=== PATIENT | female | born 1980 | race Caucasian/White ===

== ENCOUNTER 2017-02-28 17:40 | Emergency (ER) | payer OTHER ==
[~2017-02-28] VITALS: Ht 167.6 cm; Wt 71.5 kg
[~2017-02-28 17:40] MED LIST: BUPR300T49 PO; CELE200C PO; HYDR12.58 PO; IBUP-1223 PO; LEVO25TA2 PO; LINA290C PO; SPIR100T2 PO; THYR90TA PO; [UNRECOGNIZED DRUG - CODE] SC; birth control PO
[2017-02-28] MEDS ORDERED: HYDROmorphone 1 MG/ML, 1ML ONE (18:56)
[2017-02-28] MEDS ORDERED: HYDROmorphone 1 MG/ML, 1ML IM PRN (19:00)
[2017-02-28] MEDS ORDERED: PROMETHAZINE 25 MG/ML, 1ML IM STA (19:00)
[2017-02-28] MEDS ORDERED: PROMETHAZINE 25 MG/ML, 1ML ONE (19:01)
[2017-02-28 19:41] VITALS: BP 116/81
== END 2017-02-28 19:43 | disposition home or self-care (01) ==
LOC: ED 19:36
DX: Z76.0 Encounter for issue of repeat prescription (principal); J34.89 Other specified disorders of nose and nasal sinuses
CPT/HCPCS: 96372; 99284; J1170; J2550

== ENCOUNTER 2017-06-05 16:46 | Emergency (ER) | payer OTHER ==
[~2017-06-05] VITALS: Ht 165.1 cm; Wt 70.4 kg
[2017-06-05 17:31] LABS: BASOPHILS # (AUTO) 0.04 x10^3/uL (0-0.1); BASOPHILS % (AUTO) 1 % (0-1); EOSINOPHILS # (AUTO) 0.03 x10^3/uL (0-0.4); EOSINOPHILS % (AUTO) 0 % (1-7); LYMPHOCYTES # (AUTO) 2.68 x10^3/uL (1-3.4); LYMPHOCYTES % (AUTO) 36 % (22-44); MD NO; MEAN CORPUSCULAR HGB CONC 33.5 g/dL (32.4-35.8); MEAN CORPUSCULAR VOLUME 98.6 fL (80-100); MEAN PLATELET VOLUME 7.6 fL (7.4-10.4); MONOCYTES # (AUTO) 0.57 x10^3/uL (0.2-0.8); MONOCYTES % (AUTO) 8 % (2-9); NEUTROPHILS % (AUTO) 56 % (42-75); PLATELET COUNT 493 x10^3/uL (130-400); RED BLOOD COUNT 4.57 x10^6/uL (3.82-5.3)
[2017-06-05 17:39] LABS: ALANINE AMINOTRANSFERASE 40 U/L (12-78); ALBUMIN 4.2 g/dL (3.4-5.0); ANION GAP 9 mmol/L (5-15); CALCIUM 8.1 mg/dL (8.5-10.1); CHLORIDE 103 mmol/L (98-107); CREATININE 0.73 mg/dL (0.55-1.02)
[2017-06-05 17:41] LABS: ALKALINE PHOSPHATASE 89 U/L (45-117); BILIRUBIN,TOTAL 0.6 mg/dL (0.2-1.0); TOTAL PROTEIN 7.6 g/dL (6.4-8.2)
[2017-06-05] MEDS ORDERED: MAALOX/HYOSCYAMINE/LIDOCAINE 45 ML BTL PO ONE (19:00)
[2017-06-05] MEDS ORDERED: SODIUM CHLORIDE FLUSH 10ML SYR IVF ONE (19:00)
[2017-06-05] MEDS ORDERED: FAMOTIDINE 20 MG/2 ML IVP ONE (19:00)
[2017-06-05] MEDS ORDERED: SODIUM CHLORIDE 0.9% 1,000ML IVBOLUS ONE (19:00)
[2017-06-05] MEDS ORDERED: ONDANSETRON 2MG/ML, 2ML IVPush ONE ×2 (19:00→21:00)
[2017-06-05] MEDS ORDERED: MAALOX/HYOSCYAMINE/LIDOCAINE 45 ML BTL ONE (19:05)
[2017-06-05] MEDS ORDERED: ONDANSETRON 2MG/ML, 2ML ONE ×2 (19:05→21:17)
[2017-06-05] MEDS ORDERED: FAMOTIDINE 20 MG/2 ML ONE (19:05)
[2017-06-05] MEDS ORDERED: EMPA10TA PO (19:16)
[2017-06-05] MEDS ORDERED: POTA25TA4 PO (19:16)
[2017-06-05] MEDS ORDERED: LISD50CA3 PO (19:16)
[2017-06-05] MEDS ORDERED: OMNIPAQUE 350 MG/ML, 100ML BOTTLE ONE (19:38)
[2017-06-05] MEDS ORDERED: MORPHINE SULFATE 4 MG/ML, 1ML IVPush PRN (21:00)
[2017-06-05] MEDS ORDERED: MORPHINE SULFATE 4 MG/ML, 1ML ONE (21:17)
[2017-06-05 21:42] VITALS: BP 107/67
== END 2017-06-05 21:46 | disposition home or self-care (01) ==
LOC: ED 21:12
DX: N83.292 Other ovarian cyst, left side (principal); R19.7 Diarrhea, unspecified; C73 Malignant neoplasm of thyroid gland; E11.9 Type 2 diabetes mellitus without complications; G43.909 Migraine, unspecified, not intractable, without status migrainosus
CPT/HCPCS: 36415; 74022; 74177; 80053; 83690; 84703; 85025; 93005; 96361; 96374; 96375; 96376; 99285; J2405; J7030; Q9967; S0028

== ENCOUNTER 2017-11-29 10:45 | Day surgery (SDC) | payer OTHER ==
[~2017-11-29] VITALS: Ht 165.1 cm; Wt 68.0 kg
[~2017-11-29 10:45] MED LIST changes: +EMPA10TA PO; +LISD50CA3 PO; +POTA25TA4 PO; -SPIR100T2 PO; +SPIR100T4 PO
[2017-11-29 11:10] VITALS: BP 121/85
[2017-11-29] MEDS ORDERED: LACTATED RINGERS 1,000 ML IV SCH (11:13)
[2017-11-29] MEDS ORDERED: PLEASE ENTER HEIGHT AND WEIGHT MC SCH (11:30)
[2017-11-29] MEDS ORDERED: BUPIVACAINE/PF-EPI 0.25% 1:200K ONE (11:38)
[2017-11-29] MEDS ORDERED: SILVER NITRATE STICK TP ONE (11:39)
[2017-11-29] MEDS ORDERED: THROMBIN 5,000 UNIT VIAL TP ONE (11:39)
[2017-11-29] MEDS ORDERED: SUMATRIPTAN (11:56)
[2017-11-29] MEDS ORDERED: ALPR-475 PO (11:56)
[2017-11-29] MEDS ORDERED: OMEP40CA6 PO (11:56)
[2017-11-29] MEDS ORDERED: OXYC-306 PO (11:56)
[2017-11-29] MEDS ORDERED: BUPR300T49 PO (11:56)
[2017-11-29] MEDS ORDERED: JUNEL FE (11:56)
[2017-11-29] MEDS ORDERED: SCOPOLAMINE PATCH, 1.5MG PATCH.TD72 TD ONE (12:30)
[2017-11-29] MEDS ORDERED: FENTANYL PF 100 MCG/2ML ONE (12:30)
[2017-11-29] MEDS ORDERED: ACETAMINOPHEN 500 MG TABLET PO ONE (12:30)
[2017-11-29] MEDS ORDERED: OxyconTIN ER 10 MG TAB.ER PO ONE (12:30)
[2017-11-29] MEDS ORDERED: MIDAZOLAM 1 MG/ML, 2ML ONE (12:30)
[2017-11-29] MEDS ORDERED: GABAPENTIN 300 MG CAPSULE PO ONE (12:30)
[2017-11-29] MEDS ORDERED: DEXAMETHASONE 4 MG/ML, 1ML ONE (12:41)
[2017-11-29] MEDS ORDERED: SUCCINYLCHOLINE 20 MG/ML, 10ML ONE (12:41)
[2017-11-29] MEDS ORDERED: ROCURONIUM 10 MG/ML,10ML ONE (12:41)
[2017-11-29] MEDS ORDERED: ONDANSETRON 2MG/ML, 2ML ONE (12:41)
[2017-11-29] MEDS ORDERED: KETOROLAC 30 MG/1 ML ONE (12:41)
[2017-11-29] MEDS ORDERED: CEFAZOLIN 1,000 MG ONE (12:41)
[2017-11-29] MEDS ORDERED: PROPOFOL 10 MG/ML, 20ML ONE (12:41)
[2017-11-29] MEDS ORDERED: BUPIVACAINE/PF-EPI 0.25% 1:200K INFIL ONE (13:17)
[2017-11-29] MEDS: HYDROmorphone 1 MG/ML, 1ML IV PRN ×3 (13:39→14:06)
[2017-11-29] MEDS ORDERED: MEPERIDINE/PF 50 MG/ML ONE (13:41)
[2017-11-29] MEDS: MEPERIDINE/PF 25MG/0.5ML IVPush PRN ×2 (13:45→13:55)
[2017-11-29] MEDS ORDERED: OXYcodone 5 MG/5 ML ORAL.SOL UDC ONE (13:59)
[2017-11-29] MEDS ORDERED: ACETAMINOPHEN 650 MG/20.3 ML UDC ONE (13:59)
[2017-11-29] MEDS ORDERED: HYDROmorphone 2 MG/ML, 1ML ONE (13:59)
[2017-11-29] MEDS ORDERED: OXYcodone 5 MG/5 ML ORAL.SOL UDC PO PRN (14:00)
[2017-11-29] MEDS ORDERED: PROMETHAZINE 25 MG/ML, 1ML IV PRN (14:00)
[2017-11-29] MEDS ORDERED: MIDAZOLAM 1 MG/ML, 2ML IV PRN (14:00)
[2017-11-29] MEDS ORDERED: ONDANSETRON ODT 8 MG PO PRN (14:00)
[2017-11-29] MEDS ORDERED: FENTANYL PF 100 MCG/2ML IV PRN (14:00)
[2017-11-29] MEDS ORDERED: ALUMINUM/MAG/SIMETHICONE 30 ML UDC PO ONE (14:30)
[2017-11-29] MEDS ORDERED: morphine SULFATE 10 MG/ML, 1ML IVPush PRN (16:30)
== END 2017-11-29 18:25 | disposition home or self-care (01) ==
LOC: OUT 10:45
PROVIDERS: ATTEND Obstetrics & Gynecology
DX: N93.8 Other specified abnormal uterine and vaginal bleeding (principal); E78.00 Pure hypercholesterolemia, unspecified; K22.70 Barrett's esophagus without dysplasia; E03.9 Hypothyroidism, unspecified; E89.0 Postprocedural hypothyroidism; Z87.39 Personal history of other diseases of the musculoskeletal system and connective tissue; Z98.890 Other specified postprocedural states; Z90.49 Acquired absence of other specified parts of digestive tract; Z79.899 Other long term (current) drug therapy; Z90.710 Acquired absence of both cervix and uterus
CPT/HCPCS: 36415; 49320; 82962; 86850; 86900; J0330; J0690; J1100; J1170; J1885; J2175; J2250; J2270; J2405; J2704; J3010; J7120

== ENCOUNTER 2018-07-25 08:20 | Emergency (ER) | payer OTHER ==
[~2018-07-25] VITALS: Ht 165.1 cm; Wt 71.6 kg
[~2018-07-25 08:20] MED LIST changes: +ALPR-475 PO; -HYDR12.58 PO; +HYDROCHLOROTH12.5 MG PO; +JUNEL FE; +OMEP40CA6 PO; +OXYC-306 PO; +SUMATRIPTAN
--- NOTE | 2018-07-25 09:13 | NUR ---
CHARLES X 2 DAYS WITH WORSENING TODAY WHERE SHE IS UNABLE TO FUNCTION/VOMITING. ALSO REPORTING RIGHT CHEST PAIN (FEELS LIKE MY CHRONIC BARRETS ESOPHAGITIS.") PLACED ON DIE FORGER PIV PLACED FROM WHICH LABS WERE DRAWN PROVIDER TO BEDSIDE-TO TREAT CHARLES.
[2018-07-25 09:24] LABS: BASOPHILS # (AUTO) 0.05 x10^3/uL (0-0.1); BASOPHILS % (AUTO) 1 % (0-1); EOSINOPHILS % (AUTO) 1 % (1-7); LYMPHOCYTES # (AUTO) 2.89 x10^3/uL (1-3.4); LYMPHOCYTES % (AUTO) 36 % (22-44); MD NO; MEAN CORPUSCULAR HEMOGLOBIN 34.2 pg (27.0-34.8); MEAN CORPUSCULAR HGB CONC 34.2 g/dL (32.4-35.8); MEAN PLATELET VOLUME 7.6 fL (7.4-10.4); MONOCYTES % (AUTO) 9 % (2-9); NEUTROPHILS # (AUTO) 4.37 x10^3/uL (1.8-6.8); NEUTROPHILS % (AUTO) 54 % (42-75); PLATELET COUNT 412 x10^3/uL (130-400); RED BLOOD COUNT 4.26 x10^6/uL (3.82-5.3); RED CELL DISTRIBUTION WIDTH 13.5 % (9.6-15.2)
[2018-07-25] MEDS ORDERED: LORazepam 2 MG/ML, 1ML ONE ×2 (09:25→10:18)
[2018-07-25] MEDS ORDERED: METOCLOPRAMIDE 5 MG/ML, 2ML ONE ×2 (09:25→10:18)
[2018-07-25] MEDS ORDERED: METOCLOPRAMIDE 5 MG/ML, 2ML IVPush ONE (09:30)
[2018-07-25] MEDS ORDERED: SODIUM CHLORIDE FLUSH 10ML SYR IVF ONE (09:30)
[2018-07-25 10:00] LABS: ALBUMIN 3.9 g/dL (3.4-5.0); CALCIUM 9.2 mg/dL (8.5-10.1)
[2018-07-25] MEDS ORDERED: LORazepam 2 MG/ML, 1ML IVPush ONE (10:00)
[2018-07-25 10:12] LABS: T4 (THYROXINE) 7.8 mcg/dL (4.8-13.9); THYROID STIMULATING HORMONE 0.78 mIU/L (0.358-3.740)
[2018-07-25 10:16] LABS: ALANINE AMINOTRANSFERASE 27 U/L (12-78); ALKALINE PHOSPHATASE 67 U/L (45-117); ANION GAP 6 mmol/L (5-15); CHLORIDE 110 mmol/L (98-107); TOTAL PROTEIN 6.8 g/dL (6.4-8.2); TROPONIN I < 0.015 ng/mL (0.000-0.045)
--- NOTE | 2018-07-25 10:30 | NUR ---
1mg of ativan wasted w/ Sri rn as witness-omnicell not showing waste hx. to f/u with pharmacy shortly
--- NOTE | 2018-07-25 10:51 | NUR ---
Patient deeply asleep with stable vitals on pvc monitor Will give patient another 10 minutes then will re-rouse for Re-check
[2018-07-25 10:53] VITALS: BP 121/84
--- NOTE | 2018-07-25 10:57 | NUR ---
PATIENT REPORTS CHARLES IMPROVED TO 06/16. AMBULATORY W/OUT DIFFICULTY. DEFERRING PO FLUIDS AT THIS TIME. ADVISED TO CALL FOR RIDE HOME PUT UP FOR RECHECK
[2018-07-25] MEDS ORDERED: DEXAMETHASONE 4 MG/ML, 1ML ONE (11:28)
[2018-07-25] MEDS ORDERED: DEXAMETHASONE 4 MG/ML, 1ML IVPush ONE (11:30)
--- NOTE | 2018-07-25 11:30 | NUR ---
RICKY OBTAINED TOLERATED PO FLUIDS INDUSTRIAL CHEMICALS SUPERVISOR COMFORTABLE SENDING PATIENT HOME W/ RECENT ADMINISTRATION OF SEDATING AGENT PATIENT AGREEABLE
== END 2018-07-25 11:45 | disposition home or self-care (01) ==
LOC: ED 10:23
DX: R07.89 Other chest pain (principal); R51 Headache; R11.0 Nausea; E11.9 Type 2 diabetes mellitus without complications; Z87.891 Personal history of nicotine dependence; Z85.850 Personal history of malignant neoplasm of thyroid; Z85.41 Personal history of malignant neoplasm of cervix uteri; Z90.49 Acquired absence of other specified parts of digestive tract
CPT/HCPCS: 36415; 71045; 80053; 83690; 84436; 84443; 84484; 85025; 85379; 93005; 96374; 96375; 99284; J1100; J2060; J2765

== ENCOUNTER 2019-02-09 20:53 | Day surgery (SDC) | payer OTHER ==
[~2019-02-09] VITALS: Ht 170.2 cm; Wt 78.0 kg
[~2019-02-09 20:53] MED LIST changes: -ALPR-475 PO; +ALPR0.5T7 PO; +OMEP40CA42 PO; -OMEP40CA6 PO
--- NOTE | 2019-02-09 21:23 | NUR ---
ADMIT FSBS TAKEN : 33 MG/DL. ERP UPDATED. 50% DEX 1 AMP IV GIVEN. WILL RECHECK BS IN 15 MIN.
[2019-02-09] MEDS ORDERED: DEXTROSE 50%, 50ML SYRINGE IVPush ONE ×2 (21:30→22:30)
[2019-02-09 21:33] LABS: BASOPHILS # (AUTO) 0.02 x10^3/uL (0-0.1); BASOPHILS % (AUTO) 0 % (0-1); EOSINOPHILS # (AUTO) 0.11 x10^3/uL (0-0.4); EOSINOPHILS % (AUTO) 1 % (1-7); LYMPHOCYTES # (AUTO) 3.49 x10^3/uL (1-3.4); LYMPHOCYTES % (AUTO) 45 % (22-44); MD NO; MEAN CORPUSCULAR HEMOGLOBIN 33.6 pg (27.0-34.8); MEAN CORPUSCULAR HGB CONC 33.4 g/dL (32.4-35.8); MEAN CORPUSCULAR VOLUME 100.5 fL (80-100); MEAN PLATELET VOLUME 7.4 fL (7.4-10.4); MONOCYTES # (AUTO) 0.83 x10^3/uL (0.2-0.8); MONOCYTES % (AUTO) 11 % (2-9); NEUTROPHILS # (AUTO) 3.37 x10^3/uL (1.8-6.8); NEUTROPHILS % (AUTO) 43 % (42-75); PLATELET COUNT 352 x10^3/uL (130-400); RED BLOOD COUNT 3.46 x10^6/uL (3.82-5.3)
--- NOTE | 2019-02-09 21:40 | NUR ---
PT IS MORE CLEAR [facility] : 15.
[2019-02-09 21:41] LABS: ANION GAP 6 mmol/L (5-15); CALCIUM 6.9 mg/dL (8.5-10.1); CHLORIDE 104 mmol/L (98-107); CREATININE 0.76 mg/dL (0.55-1.02)
--- NOTE | 2019-02-09 21:42 | NUR ---
ERP UPDATED ON BS AND PT C/O PAIN.
--- NOTE | 2019-02-09 21:56 | NUR ---
DIFFICULT STRAIGHT CATH. UA OBTAINED. SENT TO LAB. NOTED LARGE AMT OF YEAST PRESENT.
[2019-02-09 21:57] LABS: ALANINE AMINOTRANSFERASE 22 U/L (12-78); ALKALINE PHOSPHATASE 63 U/L (45-117); BILIRUBIN,TOTAL 0.4 mg/dL (0.2-1.0); TOTAL PROTEIN 5.5 g/dL (6.4-8.2)
[2019-02-09 22:08] LABS: HCG UR SG 1.034 (1.003-1.030); MICROSCOPIC NOT IND
[2019-02-09 22:11] LABS: CULTURE INDICATED? NO
--- NOTE | 2019-02-09 22:24 | NUR ---
2ND AMP OF DEXTROSE 50 % GIVEN IV.
[2019-02-09] MEDS ORDERED: MAGNESIUM SULFATE PMX 2GM/50ML 50 ML ONE (22:26)
[2019-02-09] MEDS: POTASSIUM CHLORIDE 20 MEQ in DEXTROSE 10% 1,000 ML IV SCH (22:30)
[2019-02-09] MEDS ORDERED: SODIUM CHLORIDE 0.9% IV ONE (22:30)
[2019-02-09] MEDS ORDERED: CALCIUM GLUCONATE IV ONE (22:30)
[2019-02-09] MEDS ORDERED: MAGNESIUM SULFATE PMX 2GM/50ML 50 ML IV ONE (22:30)
[2019-02-09] MEDS ORDERED: D5%-0.45NACL+KCL 20MEQ 1,000 ML IV SCH (22:30)
[2019-02-09 22:54] LABS: AMPHETAMINE SCREEN, URINE Positive (Negative); BARBITURATE SCREEN, URINE Negative (Negative); BENZODIAZEPINE SCREEN, URINE Positive (Negative); CANNABINOID SCREEN, URINE Negative (Negative); COCAINE SCREEN, URINE Negative (Negative); METHADONE SCREEN, URINE Negative (Negative); OPIATE SCREEN, URINE Positive (Negative)
[2019-02-09] MEDS ORDERED: HYDROmorphone 1 MG/ML, 1ML VIAL ONE (22:56)
[2019-02-09] MEDS ORDERED: ONDANSETRON 2MG/ML, 2ML ONE (22:56)
[2019-02-09] MEDS ORDERED: ONDANSETRON 2MG/ML, 2ML IVPush ONE (23:00)
[2019-02-09] MEDS ORDERED: HYDROmorphone 2MG TABLET PO PRN (23:00)
--- NOTE | 2019-02-09 23:11 | NUR ---
[id number] INFUSING AT 100 CC/HR.
--- NOTE | 2019-02-09 23:29 | NUR ---
UNABLE TO OBTAIN MED REC TO COMPLETE ACCURACY, NEED TO CONTACT PHARMACY IN THE AM. Addendum: 02/09/19 at 2330 by MACRINA REPORTED TO REC'CIPRIANO NARAYANAN.
--- NOTE | 2019-02-09 23:42 | NUR ---
WAITING ON COLLEGE HIRE TO SEE PT BEFORE TAKEN TO INPT ROOM.
--- NOTE | 2019-02-09 23:43 | NUR ---
UP TO THE BSC TO VOID. STAND BY ASST. GAIT STEADY. VOID. JACQUELIN CARE GIVEN. BACK TO BED. CALL LIGHT IN REACH. FLUIDS INFUSING W/O DIFF.
--- NOTE | 2019-02-10 00:03 | NUR ---
SALES PROFESSIONAL BILINGUAL IN ROOM AT THIS TIME.
[2019-02-10] MEDS ORDERED: DIPHENHYDRAMINE 25 MG CAPSULE PO PRN (01:30)
[2019-02-10] MEDS ORDERED: morphine SULFATE 10 MG/ML, 1ML IVPush PRN (01:30)
[2019-02-10] MEDS ORDERED: PROMETHAZINE 25 MG/ML, 1ML IM PRN (01:30)
[2019-02-10] MEDS ORDERED: LABETALOL 5MG/ML, 20ML IVPush PRN (01:30)
[2019-02-10] MEDS ORDERED: ACETAMINOPHEN 325 MG TABLET PO PRN (01:30)
[2019-02-10] MEDS: ENOXAPARIN 40 MG/0.4 ML SQ SCH (02:11)
[2019-02-10] MEDS: ONDANSETRON 2MG/ML, 2ML IVPush PRN ×2 (02:11→09:37)
[2019-02-10 02:27] LABS: ALBUMIN 3.2 g/dL (3.4-5.0); ANION GAP 5 mmol/L (5-15); CALCIUM 7.7 mg/dL (8.5-10.1); CHLORIDE 106 mmol/L (98-107); CREATININE 0.67 mg/dL (0.55-1.02)
[2019-02-10 02:41] LABS: CALCIUM 7.7 mg/dL (8.5-10.1)
[2019-02-10 02:55] LABS: FREE T4 (FREE THYROXINE) 0.83 ng/dL (0.76-1.46)
[2019-02-10] MEDS: D5%-0.45NACL+KCL 20MEQ 1,000 ML IV SCH ×2 (03:26→14:59)
[2019-02-10] MEDS ORDERED: POTASSIUM CHLORIDE 40 MEQ in SODIUM CHLORIDE 0.9% 500 ML IV ONE (04:00)
[2019-02-10 04:15] VITALS: BP_SYST 125; BP_SYST 85; BP_DIAS 50; BP_DIAS 74
[2019-02-10] MEDS ORDERED: LEVOTHYROXINE 25 MCG TABLET PO SCH (06:00)
[2019-02-10] MEDS ORDERED: LINACLOTIDE 290 MCG PO SCH (09:00)
[2019-02-10] MEDS ORDERED: THYROID 30 MG TABLET PO SCH (09:00)
[2019-02-10] MEDS: POTASSIUM CHLORIDE 20 MEQ in DEXTROSE 10% 1,000 ML IV SCH (09:16)
[2019-02-10] MEDS: SENNA/DOCUSATE TABLET PO SCH (09:17)
[2019-02-10] MEDS ORDERED: HYDROmorphone 2MG TABLET ONE (09:32)
[2019-02-10] MEDS: HYDROmorphone 4MG TABLET PO PRN (09:37)
[2019-02-10] MEDS ORDERED: MELATONIN 5 MG TABLET PO PRN (11:00)
[2019-02-10] MEDS ORDERED: OMNIPAQUE 350 MG/ML, 100ML BOTTLE ONE (11:46)
[2019-02-10 12:00] VITALS: BP 101/70
[2019-02-10] MEDS: CALCIUM CARBONATE 500 MG TAB.CHEW PO SCH ×2 (12:25→21:37)
[2019-02-10 13:12] VITALS: BP 91/56
[2019-02-10] MEDS ORDERED: GADOTERATE 7.5 MMOL/15 ML SYR ONE (15:27)
[2019-02-10] MEDS: CALCITRIOL 0.25 MCG CAPSULE PO SCH ×2 (16:47→21:37)
[2019-02-10 18:35] VITALS: BP 99/62
[2019-02-10] MEDS: BUPROPION SR 150 MG TABLET PO SCH (21:49)
[2019-02-11] MEDS: D5%-0.45NACL+KCL 20MEQ 1,000 ML IV SCH ×2 (01:30→09:30)
[2019-02-11 01:42] VITALS: BP 86/52
[2019-02-11] MEDS: ENOXAPARIN 40 MG/0.4 ML SQ SCH (01:45)
[2019-02-11 01:52] VITALS: BP 86/49
[2019-02-11 04:25] VITALS: BP 95/57
[2019-02-11 05:18] LABS: ALBUMIN 2.8 g/dL (3.4-5.0); ANION GAP 3 mmol/L (5-15); CALCIUM 7.6 mg/dL (8.5-10.1); CHLORIDE 113 mmol/L (98-107)
[2019-02-11 05:22] LABS: ALANINE AMINOTRANSFERASE 20 U/L (12-78); ALKALINE PHOSPHATASE 64 U/L (45-117); BILIRUBIN,TOTAL 0.3 mg/dL (0.2-1.0); CREATININE 0.46 mg/dL (0.55-1.02); TOTAL PROTEIN 5.3 g/dL (6.4-8.2)
[2019-02-11 05:28] LABS: BASOPHILS # (AUTO) 0.03 x10^3/uL (0-0.1); BASOPHILS % (AUTO) 1 % (0-1); EOSINOPHILS # (AUTO) 0.16 x10^3/uL (0-0.4); EOSINOPHILS % (AUTO) 3 % (1-7); LYMPHOCYTES # (AUTO) 1.95 x10^3/uL (1-3.4); LYMPHOCYTES % (AUTO) 40 % (22-44); MD NO; MEAN CORPUSCULAR HEMOGLOBIN 33.4 pg (27.0-34.8); MEAN CORPUSCULAR HGB CONC 33.2 g/dL (32.4-35.8); MEAN CORPUSCULAR VOLUME 100.8 fL (80-100); MEAN PLATELET VOLUME 7.5 fL (7.4-10.4); MONOCYTES # (AUTO) 0.63 x10^3/uL (0.2-0.8); MONOCYTES % (AUTO) 13 % (2-9); NEUTROPHILS # (AUTO) 2.09 x10^3/uL (1.8-6.8); NEUTROPHILS % (AUTO) 43 % (42-75); PLATELET COUNT 389 x10^3/uL (130-400); RED BLOOD COUNT 3.73 x10^6/uL (3.82-5.3); RED CELL DISTRIBUTION WIDTH 13.3 % (9.6-15.2)
[2019-02-11] MEDS ORDERED: THYROID 30 MG TABLET PO SCH (06:00)
[2019-02-11] MEDS ORDERED: LEVOTHYROXINE 25 MCG TABLET PO SCH (06:00)
[2019-02-11] MEDS: BUPROPION SR 150 MG TABLET PO SCH (08:53)
[2019-02-11] MEDS: CALCITRIOL 0.25 MCG CAPSULE PO SCH ×2 (08:53→16:17)
[2019-02-11] MEDS: CALCIUM CARBONATE 500 MG TAB.CHEW PO SCH (09:00)
[2019-02-11] MEDS: SENNA/DOCUSATE TABLET PO SCH (09:05)
[2019-02-11] MEDS ORDERED: HYDROmorphone 2MG TABLET ONE (09:13)
[2019-02-11] MEDS: HYDROmorphone 4MG TABLET PO PRN (09:16)
[2019-02-11 10:25] VITALS: BP 104/68
[2019-02-11] MEDS ORDERED: MAGNESIUM SULFATE PMX 2GM/50ML 50 ML IV ONE (12:00)
[2019-02-11] MEDS ORDERED: MAGNESIUM SULFATE PMX 2GM/50ML 50 ML ONE (12:46)
[2019-02-11 13:13] VITALS: BP 106/68
[2019-02-11] MEDS ORDERED: LEVO25TA2 PO (15:48)
[2019-02-11] MEDS ORDERED: THYR30TA PO (15:48)
== END 2019-02-11 18:19 | disposition home or self-care (01) ==
LOC: EDSTATUS 21:02 → ED 22:00 → EDIP 22:31 → UNDOADMIN 22:31 → OUT 22:31 → EDIP 02-10 00:54 → CCU 02-10 00:54 → 5SO 02-10 11:43 → CCU 02-10 11:43 → OUT 02-11 18:19 → UNDODISIN 02-11 18:19
PROVIDERS: ATTEND Emergency Medicine
DX: R55 Syncope and collapse (principal); E11.649 Type 2 diabetes mellitus with hypoglycemia without coma; R60.0 Localized edema; R56.9 Unspecified convulsions; G93.41 Metabolic encephalopathy; E20.9 Hypoparathyroidism, unspecified; M32.9 Systemic lupus erythematosus, unspecified; Q79.60 Ehlers-Danlos syndrome, unspecified; K21.9 Gastro-esophageal reflux disease without esophagitis; G43.909 Migraine, unspecified, not intractable, without status migrainosus; E89.0 Postprocedural hypothyroidism; Z79.890 Hormone replacement therapy; Z79.891 Long term (current) use of opiate analgesic; Z79.899 Other long term (current) drug therapy; Z85.41 Personal history of malignant neoplasm of cervix uteri; Z85.850 Personal history of malignant neoplasm of thyroid; Z87.891 Personal history of nicotine dependence; Z90.49 Acquired absence of other specified parts of digestive tract; Z98.890 Other specified postprocedural states; Z82.49 Family history of ischemic heart disease and other diseases of the circulatory system; Z82.69 Family history of other diseases of the musculoskeletal system and connective tissue; Z83.6 Family history of other diseases of the respiratory system
CPT/HCPCS: 36415 ×2; 70553 ×2; 71045 ×2; 71275 ×2; 80048 ×2; 80053 ×2; 80307 ×2; 81003 ×2; 81025 ×2; 82040 ×2; 82310 ×2; 82330 ×2; 82533 ×2; 82962 ×2; 83036 ×2; 83525 ×2; 83735 ×2; 83880 ×2; 83970 ×2; 84100 ×2; 84439 ×2; 84443 ×2; 84481 ×2; 84681 ×2; 85025 ×2; 87081 ×2; 93005 ×2; 93306 ×2; 93970 ×2; 95819 ×2; 96374 ×2; 99291 ×2; A9575; G0378; J0610 ×2; J1650 ×2; J2270; J2405 ×2; J3475; J3480 ×2; J7040; Q9967 ×2

== ENCOUNTER → 2019-09-26 | Outpatient (CLI) | payer OTHER ==
[~2019-09-26] MED LIST changes: +AMOX1TAB61 PO; +DESO1TAB66 PO; +FAMO40TA4 PO; +FEXO180T72 PO; +HYDR4TAB48 PO; +OMNIPAQUE 350 MG/ML, 100ML BOTTLE ONE; +PRED50TA PO; +THYR30TA PO; +THYR60TA PO
== END | disposition home or self-care (01) ==
LOC: RAD 09:00
PROVIDERS: ATTEND Nurse Practitioner Family
DX: N20.0 Calculus of kidney (principal); I77.811 Abdominal aortic ectasia; N85.4 Malposition of uterus; Z90.49 Acquired absence of other specified parts of digestive tract
CPT/HCPCS: 74177; Q9967

== ENCOUNTER 2019-09-28 09:03 | Observation (INO) | payer OTHER ==
[~2019-09-28] VITALS: Ht 167.6 cm; Wt 77.8 kg
[~2019-09-28 09:03] MED LIST changes: -AMOX1TAB61 PO; -DESO1TAB66 PO; -FAMO40TA4 PO; -FEXO180T72 PO; -HYDR4TAB48 PO; -OMNIPAQUE 350 MG/ML, 100ML BOTTLE ONE; -PRED50TA PO; -THYR60TA PO
--- NOTE | 2019-09-28 09:20 | NUR ---
PT HAS CO SWOLLEN NECK AND TENDERNESS. HX OF THYROID CANCER. PT AIRWAY CLEAR. THROAT NOT SORE OR RED. NO EXUDATE. RESP EVEN AND UNLABORED
[2019-09-28] MEDS ORDERED: DEXAMETHASONE 4 MG/ML, 1ML ONE (09:29)
[2019-09-28] MEDS ORDERED: DEXAMETHASONE 4 MG/ML, 1ML PO ONE (09:30)
[2019-09-28 09:55] LABS: BASOPHILS # (AUTO) 0.04 x10^3/uL (0-0.1); BASOPHILS % (AUTO) 1 % (0-1); EOSINOPHILS # (AUTO) 0.12 x10^3/uL (0-0.4); EOSINOPHILS % (AUTO) 2 % (1-7); LYMPHOCYTES # (AUTO) 2.34 x10^3/uL (1-3.4); LYMPHOCYTES % (AUTO) 48 % (22-44); MD NO; MEAN CORPUSCULAR HEMOGLOBIN 32.3 pg (27.0-34.8); MEAN CORPUSCULAR HGB CONC 33.6 g/dL (32.4-35.8); MEAN CORPUSCULAR VOLUME 95.9 fL (80-100); MEAN PLATELET VOLUME 7.3 fL (7.4-10.4); MONOCYTES % (AUTO) 12 % (2-9); NEUTROPHILS # (AUTO) 1.76 x10^3/uL (1.8-6.8); NEUTROPHILS % (AUTO) 36 % (42-75); PLATELET COUNT 429 x10^3/uL (130-400); RED BLOOD COUNT 3.83 x10^6/uL (3.82-5.3); RED CELL DISTRIBUTION WIDTH 13.2 % (9.6-15.2)
[2019-09-28 10:03] LABS: ANION GAP 7 mmol/L (5-15); CALCIUM 7.7 mg/dL (8.5-10.1); CHLORIDE 110 mmol/L (98-107); CREATININE 0.83 mg/dL (0.55-1.02)
--- NOTE | 2019-09-28 10:03 | NUR ---
MEDICATED PER ORDERS, IV ESTABLISHED FOR CT
[2019-09-28] MEDS ORDERED: ONDANSETRON 2MG/ML, 2ML ONE (10:11)
[2019-09-28] MEDS ORDERED: MORPHINE SULFATE 4 MG/ML, 1ML ONE ×3 (10:11→13:24)
[2019-09-28] MEDS: MORPHINE SULFATE 4 MG/ML, 1ML IVPush PRN ×2 (10:14→11:24)
[2019-09-28] MEDS ORDERED: ONDANSETRON 2MG/ML, 2ML IVPush ONE (10:30)
[2019-09-28] MEDS ORDERED: OMNIPAQUE 350 MG/ML, 100ML BOTTLE ONE (10:35)
--- NOTE | 2019-09-28 11:09 | NUR ---
PT AMBULATED TO BATHROOM W STEADY GAIT
[2019-09-28] MEDS ORDERED: NEOSPORIN OINT. PKT 1 PACKET ONE (11:22)
--- NOTE | 2019-09-28 11:37 | NUR ---
MEDICATED FOR PAIN, WAITING FOR CT TO BE READ
[2019-09-28] MEDS ORDERED: FAMOTIDINE 20 MG/2 ML IVPush ONE (12:30)
[2019-09-28] MEDS ORDERED: DIPHENHYDRAMINE 50 MG/ML, 1ML IVPush ONE ×2 (12:30→21:00)
--- NOTE | 2019-09-28 12:30 | NUR ---
BREAK RN: PT MEDICATED PER MAR.
[2019-09-28] MEDS ORDERED: AMPICILLIN/SULBACTAM 3 GM in SODIUM CHLORIDE 0.9% 100 ML IV ONE (13:30)
[2019-09-28] MEDS ORDERED: HYDROmorphone 1 MG/ML, 1ML INJ IV ONE (13:30)
[2019-09-28] MEDS ORDERED: SODIUM CHLORIDE 0.9% 1,000ML IVBOLUS ONE (13:30)
[2019-09-28] MEDS ORDERED: HYDROmorphone 1 MG/ML, 1ML INJ ONE (13:32)
--- NOTE | 2019-09-28 13:57 | NUR ---
REPORT TO ALEXA
[2019-09-28 14:40] VITALS: BP 117/79
[2019-09-28] MEDS ORDERED: DESO1TAB66 PO (15:25)
[2019-09-28] MEDS ORDERED: FAMO40TA4 PO (15:25)
[2019-09-28] MEDS ORDERED: HYDR4TAB48 PO (15:25)
[2019-09-28] MEDS ORDERED: LEVO25TA2 PO (15:25)
[2019-09-28] MEDS ORDERED: FEXO180T72 PO (15:25)
[2019-09-28] MEDS ORDERED: THYR60TA PO (15:25)
[2019-09-28] MEDS ORDERED: BUTALB/APAP/CAFFEINE 50MG/325MG/40MG PO PRN (16:00)
[2019-09-28] MEDS ORDERED: HYDROmorphone 4MG TABLET PO PRN (16:00)
[2019-09-28] MEDS ORDERED: ALPRazolam 1MG TAB PO PRN (16:00)
[2019-09-28] MEDS ORDERED: HYDROmorphone 2MG TABLET ONE (16:50)
[2019-09-28 19:22] VITALS: BP 110/72
[2019-09-28 20:14] VITALS: BP 117/82
[2019-09-28] MEDS: THYROID 30 MG TABLET PO SCH (21:00)
[2019-09-28] MEDS: FAMOTIDINE 20 MG/2 ML IVPush SCH (22:17)
[2019-09-28] MEDS: AMPICILLIN/SULBACTAM 3 GM in SODIUM CHLORIDE 0.9% 100 ML IV SCH (22:17)
[2019-09-29 00:56] VITALS: BP 108/66
[2019-09-29] MEDS: AMPICILLIN/SULBACTAM 3 GM in SODIUM CHLORIDE 0.9% 100 ML IV SCH ×2 (03:58→11:00)
[2019-09-29 06:13] LABS: BASOPHILS # (AUTO) 0.03 x10^3/uL (0-0.1); BASOPHILS % (AUTO) 0 % (0-1); EOSINOPHILS # (AUTO) 0.05 x10^3/uL (0-0.4); EOSINOPHILS % (AUTO) 1 % (1-7); LYMPHOCYTES % (AUTO) 28 % (22-44); MD NO; MEAN CORPUSCULAR HEMOGLOBIN 32.3 pg (27.0-34.8); MEAN CORPUSCULAR HGB CONC 33.5 g/dL (32.4-35.8); MEAN CORPUSCULAR VOLUME 96.5 fL (80-100); MEAN PLATELET VOLUME 7.8 fL (7.4-10.4); MONOCYTES # (AUTO) 0.86 x10^3/uL (0.2-0.8); MONOCYTES % (AUTO) 11 % (2-9); NEUTROPHILS # (AUTO) 4.65 x10^3/uL (1.8-6.8); NEUTROPHILS % (AUTO) 60 % (42-75); PLATELET COUNT 378 x10^3/uL (130-400); RED BLOOD COUNT 3.64 x10^6/uL (3.82-5.3); RED CELL DISTRIBUTION WIDTH 13.1 % (9.6-15.2)
[2019-09-29 06:22] LABS: ALANINE AMINOTRANSFERASE 19 U/L (12-78); ALBUMIN 2.7 g/dL (3.4-5.0); ANION GAP 9 mmol/L (5-15); CALCIUM 7.1 mg/dL (8.5-10.1); CHLORIDE 112 mmol/L (98-107); CREATININE 0.65 mg/dL (0.55-1.02)
[2019-09-29 06:25] LABS: ALKALINE PHOSPHATASE 92 U/L (45-117); BILIRUBIN,TOTAL 0.1 mg/dL (0.2-1.0); TOTAL PROTEIN 5.8 g/dL (6.4-8.2)
[2019-09-29 06:55] VITALS: BP 123/79
[2019-09-29] MEDS: FAMOTIDINE 20 MG/2 ML IVPush SCH (08:58)
[2019-09-29] MEDS: CETIRIZINE 10 MG TABLET PO SCH ×2 (08:59→09:00)
[2019-09-29] MEDS ORDERED: DESOGESTREL ETHINYL ESTRADIOL HOMEMEDPO SCH (09:00)
[2019-09-29] MEDS ORDERED: [UNRECOGNIZED DRUG - OTHER] SC SCH (09:00)
[2019-09-29] MEDS ORDERED: BUPROPION SR 150 MG TABLET PO SCH (09:00)
[2019-09-29] MEDS ORDERED: LISDEXAMFETAMINE 50 MG HOMEMEDPO SCH (09:00)
[2019-09-29] MEDS ORDERED: LINACLOTIDE 290 MCG HOMEMEDPO SCH (09:00)
[2019-09-29] MEDS: THYROID 30 MG TABLET PO SCH (09:01)
[2019-09-29] MEDS ORDERED: AMOX1TAB61 PO (09:25)
[2019-09-29] MEDS ORDERED: PRED50TA PO (09:25)
[2019-09-29] MEDS ORDERED: LEVOTHYROXINE 25 MCG TABLET PO SCH (09:30)
[2019-09-29] MEDS ORDERED: methylPREDNISolone SOD SUCC 40 MG/ML IV ONE (11:00)
[2019-09-30] MEDS ORDERED: LEVOTHYROXINE 25 MCG TABLET PO SCH (09:00)
== END 2019-09-29 12:10 | disposition home or self-care (01) ==
LOC: ED 09:27 → EDIP 14:18 → INTOOBSV 14:18 → 3N 14:24 → DCLOUNGE 09-29 12:02
PROVIDERS: ADMIT Internal Medicine; ATTEND Internal Medicine
DX: J39.2 Other diseases of pharynx (principal); T78.3XXA Angioneurotic edema, initial encounter; K22.70 Barrett's esophagus without dysplasia; F41.8 Other specified anxiety disorders; E88.09 Other disorders of plasma-protein metabolism, not elsewhere classified; K21.9 Gastro-esophageal reflux disease without esophagitis; E11.9 Type 2 diabetes mellitus without complications; E21.0 Primary hyperparathyroidism; F17.200 Nicotine dependence, unspecified, uncomplicated; Z88.6 Allergy status to analgesic agent; Z88.5 Allergy status to narcotic agent; Z79.1 Long term (current) use of non-steroidal anti-inflammatories (NSAID); Z85.850 Personal history of malignant neoplasm of thyroid; Z79.899 Other long term (current) drug therapy
CPT/HCPCS: 36415; 70491; 71045; 80048; 80053; 82040; 84443; 85025; 87081; 87880; 96365; 96366; 96375; 96376; 99285; G0378; J0295; J1100; J1170; J1200; J2270; J2405; J2920; J3490; J7030; Q9967; 96374

== ENCOUNTER 2020-03-25 14:57 | Emergency (ER) | payer OTHER ==
[~2020-03-25] VITALS: Ht 160 cm; Wt 75.2 kg
[~2020-03-25 14:57] MED LIST changes: +AMOX1TAB61 PO; +DESO1TAB66 PO; +FAMO40TA4 PO; +FEXO180T72 PO; +HYDR4TAB48 PO; +PRED50TA PO; +THYR60TA PO
[2020-03-25] MEDS ORDERED: EPINEPHRINE 1 MG/ML, 1ML ONE (15:25)
[2020-03-25] MEDS ORDERED: methylPREDNISolone SOD SUCC 125 MG/2 ML ONE (15:26)
[2020-03-25] MEDS ORDERED: DIPHENHYDRAMINE 50 MG/ML, 1ML ONE (15:27)
[2020-03-25] MEDS ORDERED: FAMOTIDINE 20 MG/2 ML ONE (15:27)
[2020-03-25] MEDS ORDERED: DIPHENHYDRAMINE 50 MG/ML, 1ML IVPush ONE (15:30)
[2020-03-25] MEDS ORDERED: EPINEPHRINE 1 MG/ML, 1ML SQ ONE (15:30)
[2020-03-25] MEDS ORDERED: FAMOTIDINE 20 MG TABLET PO ONE (15:30)
[2020-03-25] MEDS ORDERED: methylPREDNISolone SOD SUCC 125 MG/2 ML IVPush ONE (15:30)
--- NOTE | 2020-03-25 15:32 | NUR ---
IV DIFFICULT START, PLACED AFTER MULTIPLE ATTEMPTS. MEDS GIVEN PER EMAR. PT ON ALL ROOM MONITORING. NO SOB, PT C/O THROAT SWELLING "FEELS LIKE SOMETHING STUCK IN THROAT". PT WITH RASH AND REDNESS TO FACE/TORSO/BUE. CALL LIGHT WITHIN REACH.
[2020-03-25 15:41] LABS: BASOPHILS % (AUTO) 1 % (0-1); EOSINOPHILS % (AUTO) 0 % (1-7); LYMPHOCYTES % (AUTO) 17 % (22-44); MEAN CORPUSCULAR HEMOGLOBIN 33.7 pg (27.0-34.8); MEAN CORPUSCULAR HGB CONC 34.2 g/dL (32.4-35.8); MEAN PLATELET VOLUME 6.8 fL (7.4-10.4); MONOCYTES % (AUTO) 7 % (2-9); NEUTROPHILS % (AUTO) 76 % (42-75); PLATELET COUNT 543 x10^3/uL (130-400); RED BLOOD COUNT 3.96 x10^6/uL (3.82-5.3)
[2020-03-25 15:42] LABS: MD NO
[2020-03-25 15:52] LABS: ALANINE AMINOTRANSFERASE 28 U/L (12-78); ALBUMIN 3.8 g/dL (3.4-5.0); ANION GAP 6 mmol/L (5-15); CALCIUM 8.7 mg/dL (8.5-10.1); CHLORIDE 107 mmol/L (98-107); CREATININE 0.81 mg/dL (0.55-1.02)
[2020-03-25 15:54] LABS: ALKALINE PHOSPHATASE 91 U/L (45-117); BILIRUBIN,TOTAL 0.3 mg/dL (0.2-1.0); TOTAL PROTEIN 7.4 g/dL (6.4-8.2)
--- NOTE | 2020-03-25 16:16 | NUR ---
PT WITH LESS REDNESS TO CHEST AND FACE. PT STATES SWELLING DECREASED TO THROAT BUT STILL FEELS SOME TIGHTNESS AND PAIN TO NECK. PT WITH FREQUENT ATTEMPTS TO CLEAR THROAT. VSS/UPDATED IN COMPUTER. PT FOR RECHECK.
[2020-03-25 16:54] VITALS: BP 128/85
--- NOTE | 2020-03-25 16:55 | NUR ---
PT REFUSES ADMISSION FOR FURTHER EVALUATION, STATES SHE WILL RETURN IF CONDITION WORSENS. PT VERBALIZES UNDERSTANDING OF NEED FOR EPI PEN AQUISITION AND USE, VITALS STABLE AND AIRWAY PATENT, NO LONGER EXHIBITIS SIGNS/SYMPTOMS OF DIFFICULTY BREATHING. PT STATES SWELLING AND EASE OF BREATHING HAS SIGNIFICANTLY IMPROVED S/P ADMINISTRATION OF MEDS. STABLE FOR DISCHARGE TO HOME AT THIS TIME.
== END 2020-03-25 17:09 | disposition home or self-care (01) ==
LOC: ED 17:00
DX: T78.2XXA Anaphylactic shock, unspecified, initial encounter (principal); R94.31 Abnormal electrocardiogram [ECG] [EKG]; R05 Cough; R22.0 Localized swelling, mass and lump, head; E89.0 Postprocedural hypothyroidism; E11.9 Type 2 diabetes mellitus without complications; Z90.49 Acquired absence of other specified parts of digestive tract; Z88.9 Allergy status to unspecified drugs, medicaments and biological substances
CPT/HCPCS: 36415; 80053; 85025; 93005; 96372; 96374; 96375; 99284; J0171; J1200; J2930